=== PATIENT | male | born 1960 | race Caucasian/White ===

== ENCOUNTER → 2016-10-16 | Outpatient (CLI) | payer MEDICARE ==
[~2016-10-16] MED LIST: ACID CONTROL150 M1 PO; ASPIRIN81 M2 PO; CLOPIDOGREL BIS75 MG PO; CLOPIDOGREL75 MG PO; FLEXERIL10 MG PO; GABAPENTIN400 MG PO; GLIPIZIDE10 MG PO; GLUCOTROL10 MG PO; IMDUR PO; ISOSORBIDE MONO60 M1 PO; LEVEMIR FL100 UNIT/1 SUBQ; LEVEMIR100 UNITS/ SUBQ; LISINOPRIL PO; LISINOPRIL10 MG PO; LORTAB 5-325 M1 EACH PO; LOW DOSE ASPIRI81 M2 PO; METFORMIN HCL1000 M1 PO; METFORMIN PO; METOPROLOL SUC100 MG PO; PRINIVIL10 MG PO; ROSUVASTATIN CA20 MG PO; TOPROL XL100 MG PO; TRAMADOL HCL100 MG PO; ZANTAC150 M1 PO
--- NOTE | ~2016-10-16 | EKG ---
PATIENT: KARLOS ABBASI UNIT #: [id number] Ventricular Rate: 71 BPM Atrial Rate: 71 BPM P-R Interval: 172 ms QRS Duration: 106 ms Q-T Interval: 398 ms QTC Calculation(Bezet): 432 ms P [place]: -2 degrees Calculated R [place]: 38 degrees Calculated T [place]: 71 degrees Diagnosis Line: Normal sinus rhythm Diagnosis Line: Normal ECG Diagnosis Line: No previous ECGs available Diagnosis Line: Confirmed by LEONID QUEVEDO MD ([id number]) on Diagnosis Line: 10/17/2016 9:08:24 PM INTERPRETING MD: SHIRA
[2016-10-16 15:40] LABS: CALCIUM SERUM 9.2 mg/dL (8.4-10.2); GLOM FILT RATE Estimated 83.8 mL/min (>60); POTASSIUM 4.2 mmol/L (3.5-5.1)
== END | disposition home or self-care (01) ==
LOC: CAMB 13:48
PROVIDERS: Orthopaedic Surgery
DX: Z01.818 Encounter for other preprocedural examination (principal); S83.281A Other tear of lateral meniscus, current injury, right knee, initial encounter; M25.861 Other specified joint disorders, right knee
CPT/HCPCS: 36415; 80048; 93005

== ENCOUNTER → 2016-10-25 | Day surgery (SDC) | payer MEDICARE ==
--- NOTE | ~2016-10-25 | OR ---
Unit #: [id number] #: [id number] Patient: KARLOS ABBASI JR [id number] [address] [address] [id number] O MR#: [id number] NAME: KARLOS ABBASI ROOM: Date of Procedure: 10/25/2016 Admission Date: 10/25/2016 Surgeon: Froilan Moreno M.D. : 1960 Attending Physician: Froilan Moreno M.D. Primary Care Physician: Melissa Torres M.D. OPERATIVE REPORT PREOPERATIVE DIAGNOSES 1. Right knee lateral meniscus tear. 2. Right knee chondromalacia. 3. Right lateral tibial plateau stress/insufficiency fracture. POSTOPERATIVE DIAGNOSES 1. Right knee lateral meniscus tear. 2. Grade 3 chondromalacia, right tibial plateau. 3. Grade 2/3 chondromalacia, right lateral femoral condyle. 4. Grade 3 chondromalacia of trochlea. 5. Tibial insufficiency/stress fracture. PROCEDURES PERFORMED 1. Right knee subchondroplasty with internal fixation of tibial plateau insufficiency fracture. 2. Right knee arthroscopic partial lateral meniscectomy. 3. Right knee limited arthroscopic synovectomy. 4. Chondroplasty of right tibial plateau and right lateral femoral condyle. PROTECTION SPECIALIST Nilda Valadez. ANESTHESIA General with adductor canal block. ESTIMATED BLOOD LOSS Minimal. COMPLICATIONS None apparent. INDICATIONS FOR PROCEDURE Mr. Abbasi is a 56-year-old gentleman with known chondromalacia of the right knee and lateral meniscus tear. He has failed conservative treatment with corticosteroid injections as well as Synvisc injections. An MRI demonstrated an area of high-grade marrow edema and microfracture in the tibial plateau. This is a large lesion in the lateral tibial plateau. We discussed an arthroscopy with subchondroplasty. He elected to proceed. DESCRIPTION OF PROCEDURE Unit #: [id number] #: [id number] Patient: KARLOS ABBASI JR The patient was identified in the preoperative holding area. The operative site was marked. Preoperative antibiotics were administered. A regional adductor canal block was performed. The patient was brought to the operating room and placed supine on the operating table. A general anesthetic was induced. The right lower extremity was identified. Tourniquet was applied to the right thigh. The leg was placed in arthroscopic leg brown. The leg was prepped and draped in sterile fashion. The leg was exsanguinated. The tourniquet inflated. A standard anterolateral viewing portal was established. Diagnostic arthroscopy was performed. There was a large volume of numerous loose chondral fragments throughout the knee diffusely. Anteromedial working portal was established and a shaver introduced. The chondral fragments were removed with the arthroscopic shaver. In the medial compartment, the medial meniscus was unremarkable and debridement and partial meniscectomy were required. The articular cartilage here was largely unremarkable as well. Limited synovectomy was performed with some proliferative synovium in the anterolateral and anteromedial chambers. Ligamentum tissue was resected and the ACL inspected. The ACL appeared somewhat degenerative with some intrasubstance type tearing of some of the fibers, was otherwise attached to the insertion on the lateral condyle. The lateral meniscus demonstrated high-grade tearing around the posterior horn and midbody. There was grade 3 and areas of even grade 4 chondromalacia on the lateral tibial plateau. The shaver was advanced across the intercondylar notch with the knee in a figure-4 position. The shaver was used to perform a chondroplasty at both the plateau and the distal femur. This meniscus was resected back to stable border. The knee was brought into extension and the scope and shaver advanced up through the trochlear groove. There was a small area of grade 2 and grade 3 chondromalacia of the trochlea. This was directly in the central portion of the trochlea. Chondroplasty here was not warranted. The patella was unremarkable. The suprapatellar pouch was inspected. There was some proliferative synovium here, which was debrided as well. The scope was then withdrawn from the knee. Under C-arm imaging, a spinal needle was used to localize the desired drill site for the placement of the cannula for the subchondroplasty. Once this was identified, a small stab incision was made with 11 blade knife. The trocar drilled and inserted to the desired depth. This was again checked under C-arm imaging. The graft had previously been mixed. This was injected injecting approximately total of 3.5 to 3.6 mL. The drill was then placed back in the tibia while the material was allowed to cure. The scope was advanced back into the knee and we confirmed no intra-articular penetration. Excess fluid was then evacuated from the knee. Once the graft had completely cured, the trocar and drill bit were removed. Wounds were closed with Prolene sutures. The patient was placed into a well-padded soft sterile dressing. DISPOSITION Stable to the recovery room. Dictated by... Froilan Moreno M.D. Unit #: [id number] #: [id number] Patient: ELROY KARLOS DYKES/nina TD: 10/26/2016 06:12 JOB #: [id number] OPERATIVE REPORT Page 1 of 1 X Froilan Moreno MD X PROCEDURE OPERATIVE NOTE
--- NOTE | ~2016-10-25 | CR170 ---
[facility] A Service of [facility] & [facility] RADIOLOGY TEXT RESULTS PATIENT: KARLOS ABBASI JR LOCATION: [facility] : 60 UNIT #: [id number] AGE: [address]: Froilan Moreno MD SEX: M ORDER DR: [id number] [facility] [address] [place], [place] [address] [id number] O MR#: [id number] Acc #: [id number] NAME: KARLOS ABBASI : 1960 SEX: M STUDY DATE/TIME: 10/25/2016 12:44 UNIT: [facility] ROOM: STUDY DESCRIPTION: CR Knee 2 Views Rt Attending Physician: Froilan Moreno M.D. Ordering Physician: Froilan Moreno M.D. Primary Care Physician: Melissa Torres M.D. MEDICAL IMAGING REPORT This report is preliminary unless electronic signature is present EXAM C-arm fluoroscopy with 4 permanent images of the right knee, 10/25/2016. HISTORY Subchondroplasty right knee in OR localization. Chronic anterior knee pain. MRI of the right knee obtained 10/03/2016 demonstrated full-thickness chondral lesion posterior weightbearing aspect of the lateral femoral condyle with associated marrow edema. FINDINGS C-arm fluoroscopy was provided for use in the operating room. 4 spot film radiographs of the right knee were obtained in the anterior projection documenting localization of the lateral aspect of the tibial plateau. 0.29 minutes of fluoroscopy time was utilized. Dictated by... Froilan Celaya M.D. THIS IS AN ELECTRONICALLY VERIFIED REPORT Froilan Celaya M.D. at 10/26/2016 6:17 AM [place]/nasrin TD: 10/25/2016 16:14 JOB #: [id number] MEDICAL IMAGING REPORT Page 1 of 1 COPY
== END | disposition home or self-care (01) ==
LOC: CSUR 09:38
DX: M23.251 Derangement of posterior horn of lateral meniscus due to old tear or injury, right knee (principal); M84.361A Stress fracture, right tibia, initial encounter for fracture; M94.261 Chondromalacia, right knee; I25.10 Atherosclerotic heart disease of native coronary artery without angina pectoris; I10 Essential (primary) hypertension; E78.00 Pure hypercholesterolemia, unspecified; M17.11 Unilateral primary osteoarthritis, right knee; E11.9 Type 2 diabetes mellitus without complications; E78.5 Hyperlipidemia, unspecified; G47.30 Sleep apnea, unspecified; K21.9 Gastro-esophageal reflux disease without esophagitis; Z87.891 Personal history of nicotine dependence; Z79.82 Long term (current) use of aspirin; Z79.891 Long term (current) use of opiate analgesic; Z79.4 Long term (current) use of insulin; Z79.899 Other long term (current) drug therapy; Z95.1 Presence of aortocoronary bypass graft; Z95.5 Presence of coronary angioplasty implant and graft; I25.2 Old myocardial infarction
CPT/HCPCS: 73560; 76001; 82947; C1713; J0690; J1100; J1815; J1885; J2250; J2270; J2765; J2795; J3010

== ENCOUNTER → 2016-11-16 | Outpatient (CLI) | payer MEDICARE ==
--- NOTE | ~2016-11-16 | US85 ---
[facility] A Service of [facility] & [facility] RADIOLOGY TEXT RESULTS PATIENT: KARLOS ABBASI JR LOCATION: [facility] : 60 UNIT #: [id number] AGE: [address]: RADHA LACEY PA-C SEX: M ORDER DR: [id number] [facility] [address] [place], [place] [address] [id number] O MR#: [id number] Acc #: [id number] NAME: KARLOS ABBASI JR : 1960 SEX: M STUDY DATE/TIME: 11/16/2016 11:49 UNIT: [facility] ROOM: STUDY DESCRIPTION: LE Veins Unilat or Ltd Stdy Attending Physician: Radha Lacey Pa-C Referring Physician: Radha Lacey Pa-C Ordering Physician: Physician Non-Staff Primary Care Physician: Melissa Torres M.D. MEDICAL IMAGING REPORT This report is preliminary unless electronic signature is present EXAM Right lower extremity venous duplex, 11/16/2016. HISTORY Right lower extremity pain and swelling in right calf for 3 days. Right knee surgery 3 weeks ago. Evaluate for deep vein thrombosis. TECHNIQUE Dasilva-scale images of the right lower extremity were obtained as well as Doppler waveform spectral analysis and color flow Doppler imaging. FINDINGS There is normal blood flow and compressibility in the right common femoral vein, deep femoral vein, superficial femoral vein, and popliteal vein. Normal blood flow and compressibility is seen in the right calf veins. There is, however, a large complicated fluid collection in the proximal medial right calf which measures 9.2 cm x 2 cm x 4.8 cm. This could represent a hematoma or a complicated Smith cyst. Clinical correlation is recommended. IMPRESSION 1. No evidence of deep vein thrombosis in the right lower extremity. 2. 9.2 cm complicated fluid collection in the medial aspect of the upper right calf. This could represent postoperative hematoma or it could represent a complicated Smith cyst. Clinical correlation is recommended. Dictated by... Froilan Celaya M.D. THIS IS AN ELECTRONICALLY VERIFIED REPORT [facility] A Service of [facility] & [facility] RADIOLOGY TEXT RESULTS PATIENT: KARLOS ABBASI JR LOCATION: [facility] : 60 UNIT #: [id number] AGE: [address]: RADHA LACEY PA-C SEX: M ORDER DR: Froilan Celaya M.D. at 11/17/2016 7:20 AM [place]/nasrin TD: 11/16/2016 16:14 JOB #: [id number] MEDICAL IMAGING REPORT Page 1 of 1 COPY
== END | disposition home or self-care (01) ==
LOC: CNIV 11:04
DX: Z47.89 Encounter for other orthopedic aftercare (principal); M79.89 Other specified soft tissue disorders; R93.7 Abnormal findings on diagnostic imaging of other parts of musculoskeletal system
CPT/HCPCS: 93971

== ENCOUNTER 2016-11-24 01:43 | Inpatient (IN) | payer MEDICARE ==
[~2016-11-24] VITALS: Ht 182.9 cm; Wt 96.5 kg
--- NOTE | ~2016-11-24 | DS ---
Unit #: [id number] #: [id number] Patient: KARLOS ABBASI JR [id number] [address] [place], [place] [address] [id number] I MR#: [id number] NAME: KARLOS ABBASI JR ROOM: 468 Age: 56 Sex: M Admission Date: 11/24/2016 : 1960 Discharge Date: 11/25/2016 Attending Physician: Cody Hernandez M.D. Primary Care Physician: Melissa Torres M.D. DISCHARGE SUMMARY ADMITTING DIAGNOSIS Right calf swelling and pain. DISCHARGE DIAGNOSIS Hematoma of the right lower extremity. CONSULTATIONS 1. Vascular surgery, Dr. Lovell. 2. Orthopedic surgery. HISTORY This is a pleasant 56-year-old male who underwent right arthroscopic knee surgery on 10/25/2016. He noticed some postoperative swelling, which continued to get worse. He started having some pain. On ultrasound he was found to have right calf hematoma. He was seen by orthopedic surgery, as well as vascular surgery. He had no vascular compromise. His aspirin and Plavix were discontinued (1) compressions. The patient has been cleared by ortho to be discharged home to be followed as an outpatient. MEDICAL HISTORY 1. Type 2 diabetes mellitus. 2. Hypertension. 3. Hyperlipidemia. DISCHARGE MEDICATIONS 1. Gabapentin 400 mg t.i.d. 2. Metformin 1,000 b.i.d. 3. Metoprolol 100 mg daily. 4. Rosuvastatin 20 mg daily. 5. Lisinopril 10 mg daily. 6. Insulin 58 to 68 units daily. 7. Zantac 150 mg daily. 8. Aspirin 81 mg daily. 9. Hydrocodone with acetaminophen 5/325 mg 2 tablets q.6 as needed. 10. Glipizide 10 mg b.i.d. 11. Isosorbide mononitrate 60 mg daily. NOTE: Medications on hold are Plavix and aspirin. FOLLOWUP 1. Follow up with Dr. Moreno as an outpatient in a week. 2. Follow with primary care physician in 2 weeks. 3. The patient will need a venous ultrasound of right lower extremity as Unit #: [id number] #: [id number] Patient: KARLOS ABBASI JR R an outpatient. CONDITION AT DISCHARGE Stable. DISPOSITION To home. Dictated by... Fang Jose/ryan TD: 11/27/2016 09:03 JOB #: [id number] DISCHARGE SUMMARY Page 1 of 1 X Silvana Morton MD X DISCHARGE SUMMARY
--- NOTE | ~2016-11-24 | CR173 ---
[facility] A Service of [facility] & [facility] RADIOLOGY TEXT RESULTS PATIENT: KARLOS ABBASI JR LOCATION: [place] [address] : 60 UNIT #: [id number] AGE: [address]: PRATIK FERNANDEZ V SEX: M ORDER DR: [id number] [place] [id number] [facility]. [place], [place] [address] [id number] I MR#: [id number] Acc #: [id number] NAME: KARLOS ABBASI : 1960 SEX: M STUDY DATE/TIME: 11/24/2016 3:48 [facility] STUDY DESCRIPTION: CR Knee 3 Views Rt Attending Physician: Pratik Fernandez M.D. Ordering Physician: Filemon Luis Aprn Primary Care Physician: Melissa Torres M.D. MEDICAL IMAGING REPORT This report is preliminary unless electronic signature is present EXAM Right knee series INDICATION Right knee swelling for the past 3 weeks. PROCEDURE Three views of the right knee. COMPARISON None. FINDINGS No acute fracture or dislocation. IMPRESSION No acute findings. Dictated by... Johan Guevara M.D. THIS IS AN ELECTRONICALLY VERIFIED REPORT Johan Guevara M.D. at 11/28/2016 8:31 AM LOLITA/barak TD: 11/24/2016 08:18 JOB #: [id number] MEDICAL IMAGING REPORT Page 1 of 1 COPY
--- NOTE | ~2016-11-24 | CT20 ---
[facility] A Service of [facility] & [facility] RADIOLOGY TEXT RESULTS PATIENT: KARLOS ABBASI JR LOCATION: [place] [address] : 60 UNIT #: [id number] AGE: [address]: PRATIK FERNANDEZ V SEX: M ORDER DR: [id number] [facility] [address]. [place], [place] [address] [id number] I MR#: [id number] Acc #: [id number] NAME: KARLOS ABBASI JR : 1960 SEX: M STUDY DATE/TIME: 11/24/2016 10:06 UNIT: [facility] ROOM: [id number] STUDY DESCRIPTION: CT Angio Lower Ext Eyad Attending Physician: Pratik Fernandez M.D. Ordering Physician: Terrell Allen M.D. Primary Care Physician: Melissa Torres M.D. MEDICAL IMAGING REPORT This report is preliminary unless electronic signature is present EXAM CTA of the bilateral lower extremities FINDINGS Result text under the CT abdomen and pelvis examination. Please see that examination for full report. Dictated by... Jimbo Yung M.D. THIS IS AN ELECTRONICALLY VERIFIED REPORT Jimbo Yung M.D. at 11/25/2016 8:37 AM PERLA/tresa TD: 11/24/2016 15:31 JOB #: [id number] MEDICAL IMAGING REPORT Page 1 of 1 COPY
--- NOTE | ~2016-11-24 | CT14 ---
[facility] A Service of [facility] & [facility] RADIOLOGY TEXT RESULTS PATIENT: KARLOS ABBASI JR LOCATION: [place] [address] : 60 UNIT #: [id number] AGE: [address]: PRATIK FERNANDEZ V SEX: M ORDER DR: [id number] [facility]. [facility] [address] [place], [place] [address] [id number] I MR#: [id number] Acc #: [id number] NAME: KARLOS ABBASI : 1960 SEX: M STUDY DATE/TIME: 11/24/2016 10:06 [facility] [id number] STUDY DESCRIPTION: CT Angio Abdomen and Pelvis Attending Physician: Pratik Fernandez M.D. Ordering Physician: Terrell Allen M.D. Primary Care Physician: Melissa Torres M.D. MEDICAL IMAGING REPORT This report is preliminary unless electronic signature is present EXAM CT of the abdomen and pelvis and lower extremities with angiographic reconstructions INDICATION Knee arthroscopy 4 weeks ago with swelling that started 2-3 weeks ago in right knee and today cannot walk. Most of the swelling is below the calf. TECHNIQUE The patient given 125 mL of Isovue-370. Spiral imaging was performed from the lower abdomen to the feet. The technologist noted that he cannot get the abdomen on due to the patient's height. Patient cannot straighten his right leg. 3D reconstructions of the arterial structures were generated. This CT exam was performed with one or more of the following radiation dose reduction techniques: Automatic exposure control, adjustment of mA and/or kV according to patient size, and iterative reconstruction. FINDINGS The lower portions the liver and spleen are normal. The visualized portion of the gallbladder is normal. The visualized portion of the pancreas is normal. The visualized portion of the adrenal glands and kidneys are normal. The right adrenal gland is actually not visible on this study. The bowel is normal. The bladder and prostate gland are normal. There is a small right joint effusion in the knee. There is a complex fluid collection/hematoma in the right calf medially. It is about 12.4 x 6.5 cm on the axial images and is about 12 cm from top to bottom on the sagittal series. It is consistent with an intramuscular hematoma. VASCULAR STUDY FINDINGS: The lower abdominal aorta is normal in size. Renal arteries are patent. The MYRNA is patent. There is minimal plaque formation in the right common iliac artery without significant stenosis. Both external iliac arteries are patent and normal. The right superficial femoral has multiple calcified plaques and perhaps a moderate stenoses but STS. [facility] A Service of [facility] & [facility] RADIOLOGY TEXT RESULTS PATIENT: KARLOS ABBASI JR LOCATION: [facility] [id number] : [birth year] UNIT #: [id number] AGE: [address]: PRATIK FERNANDEZ V SEX: M ORDER DR: it is patent and the popliteal artery is patent. The trifurcation vessels are patent and they extend down to the ankle. The same is true on the left side with calcified plaques in the SFA. The popliteal artery is patent and the trifurcation vessels are patent with a proximal occlusion of the anterior tibial artery. IMPRESSION 1. The patient appears to have an intramuscular hematoma in the right calf. This is in the medial aspect of the calf and it is about 12.4 x 6.5 x 12.0 cm. There is also a small right joint effusion in the knee. 2. The patient's size precluded inclusion of the entire abdomen. The aorta is normal in size in the distal half of the abdomen and although there are multiple calcified plaques in the SMA, the vessels appear patent without significant stenosis down to the calf region. On the right side, there is three-vessel runoff to the ankle and on the left side the anterior tibial artery is occluded proximally though the 2 vessels extend down to the ankle. Dictated by... Jimbo Yung M.D. THIS IS AN ELECTRONICALLY VERIFIED REPORT Jimbo Yung M.D. at 11/25/2016 8:36 AM PERLA/tresa TD: 11/24/2016 15:11 JOB #: [id number] MEDICAL IMAGING REPORT Page 1 of 1 COPY
--- NOTE | ~2016-11-24 | CO ---
Unit #: [id number] #: [id number] Patient: KARLOS ABBASI JR [id number] [address] [place], [place] [address] [id number] I MR#: [id number] NAME: KARLOS ABBASI JR ROOM: 468 Age: 56 Sex: M Admission Date: 11/24/2016 : 1960 Attending Physician: Cody Hernandez M.D. Primary Care Physician: Melissa Torres M.D. Consultation Date: 11/24/2016 CONSULTATION REPORT CHIEF COMPLAINT Right calf swelling. HISTORY OF PRESENT ILLNESS Mr. Abbasi is a 56-year-old gentleman, who is well known to me from a previous right knee arthroscopy and subchondroplasty. He has had intermittent swelling of the right calf and lower extremity since surgery. He has undergone a previous ultrasound for DVT, which was negative, but did demonstrate a large fluid collection in the medial aspect of the right calf. This was treated with continued observation as this was felt to potentially be a Smith cyst. He now has re-presented to the emergency department with progressive swelling and pain, and an ultrasound has demonstrated occlusion of the popliteal vein. Orthopedic consultation has been requested for further evaluation. The patient states that he has no pain with range of motion of the toes or ankle. He has no numbness or tingling in the foot. He has normal sensation. He has pain with tendency to fully extend his knee secondary to discomfort in his calf. He states that he was actually doing somewhat better over the past several days, but then developed a large increase in the swelling today. PAST MEDICAL HISTORY Diabetes mellitus, hypertension, hyperlipidemia, coronary artery disease. PAST SURGICAL HISTORY Coronary artery bypass grafting and subsequent percutaneous angiography and stenting. Right knee arthroscopy with subchondroplasty. HOME MEDICATIONS Metformin, Imdur, Crestor, metoprolol, lisinopril, Zantac, Plavix, aspirin, Neurontin, Levemir, Elavil, glipizide, and [place]. ALLERGIES No known drug allergies. FAMILY HISTORY Noncontributory to the current illness. SOCIAL HISTORY The patient lives with his . He has no alcohol or tobacco use. REVIEW OF SYSTEMS Ten systems are reviewed and negative except with regard to the HPI. Unit #: [id number] #: [id number] Patient: KARLOS ABBASI JR PHYSICAL EXAMINATION GENERAL APPEARANCE: Jda-qfodgqvuitg-bxfluicei gentleman, who is in no acute distress, but obvious discomfort due to pain in the right lower extremity with attempted movement in bed. PSYCHIATRIC: Awake, alert, and oriented to person, place, time, and situation with normal range of mood and affect. CARDIAC: Regular rate and rhythm. PULMONARY: No increased work of breathing. Symmetric chest rise. ABDOMEN: Nontender. NEUROLOGIC: Intact motor and sensory function in the right foot. There are no paresthesias on sensory nerve inspection. No motor deficits are noted. SKIN: There is no overlying cyanosis or rubor or other skin color changes. MUSCULOSKELETAL: His right gastrocnemius is markedly swollen and the calf is firm, but there is no evidence of compartment syndrome. He has no pain with passive range of motion. Sensation is intact without paresthesias. VASCULAR: His foot is warm and well perfused with a palpable dorsalis pedis pulse. DIAGNOSTIC STUDIES IMAGING STUDIES: Plain film radiographs of the right knee and tibia are unremarkable. Normal knee radiographs. Ultrasound reveals a large fluid collection in the medial gastrocnemius with no flow through the popliteal vein. IMPRESSION This is a 56-year-old gentleman with a large right gastrocnemius hematoma and likely secondary occlusion of his popliteal vein versus deep venous thrombosis. I have discussed the case with Vascular Surgery. We will discontinue his heparin for now as the primary pathology appears to be hematoma rather than a DVT. We will hold his aspirin and Plavix as well. We will order a CT angio of the right lower extremity with runoff to ensure that there was no vascular injury. He will be n.p.o. pending further disposition. Dictated by... Fang Jonas/nina TD: 11/25/2016 05:39 JOB #: [id number] CONSULTATION REPORT Page 1 of 1 X Froilan Moreno MD CONSULTATION REPORT
--- NOTE | ~2016-11-24 | US85 ---
[facility] A Service of [facility] RADIOLOGY TEXT RESULTS PATIENT: KARLOS ABBASI JR LOCATION: [facility] [address] : 60 UNIT #: [id number] AGE: [address]: PRATIK FERNANDEZ V SEX: M ORDER DR: [id number] [facility] [address] [facility] [place], [place] [address] [id number] MR#: [id number] Acc #: [id number] NAME: KARLOS ABBASI : 1960 SEX: M STUDY DATE/TIME: 11/24/2016 4:35 [facility] RO[facility] [id number] STUDY DESCRIPTION: LE Veins [employer] Stdy Attending Physician: Pratik Fernandez M.D. Ordering Physician: Filemon Luis Aprn Primary Care Physician: Melissa Torres M.D. MEDICAL IMAGING REPORT This report is preliminary unless electronic signature is present EXAM Right lower extremity venous Doppler INDICATION Right leg pain and edema for the past week. PROCEDURE Dasilva-scale, color Doppler and spectral imaging deep veins right leg. COMPARISON 11/16/2016 FINDINGS There is DVT in the mid superficial femoral vein, distal superficial femoral vein, popliteal vein and posterior tibial vein. Complex collection in the right calf measuring up to 13.6 cm. It was previously measured at 9.2 cm. IMPRESSION 1. DVT in the kpe-ds-nupffd femoral vein, popliteal and posterior tibial veins. 2. Apparent increase in size of a complex collection in the right calf soft tissues which is nonspecific but could represent a hematoma. Correlate with physical examination findings and any relevant history. Dictated by... Johan Guevara M.D. THIS IS AN ELECTRONICALLY VERIFIED REPORT Johan Guevara M.D. at 11/28/2016 8:32 AM Jamie TD: 11/24/2016 08:18 [facility] A Service [facility] RADIOLOGY TEXT RESULTS PATIENT: KARLOS ABBASI JR LOCATION: [facility] [id number] : [birth year] UNIT #: [id number] AGE: [address]: PRATIK FERNANDEZ V SEX: M ORDER DR: JOB #: [id number] MEDICAL IMAGING REPORT Page 1 of 1 COPY
--- NOTE | ~2016-11-24 | CR253 ---
[facility] A Service of [facility] RADIOLOGY TEXT RESULTS PATIENT: KARLOS ABBASI JR LOCATION: [place] [address] : 60 UNIT #: [id number] AGE: [address]: PRATIK FERNANDEZ V SEX: M ORDER DR: [id number] [facility] [address] [facility] [place], [place] [address] [id number] MR#: [id number] Acc #: [id number] NAME: KARLOS ABBASI : 1960 SEX: M STUDY DATE/TIME: 11/24/2016 3:48 UNIT: [facility] ROOM: [id number] STUDY DESCRIPTION: CR Tibia and Fibula 2 Views Rt Attending Physician: Pratik Fernandez M.D. Ordering Physician: Filemon Luis Aprn Primary Care Physician: Melissa Torres M.D. MEDICAL IMAGING REPORT This report is preliminary unless electronic signature is present EXAM Right tib-fib series INDICATION Right lower leg swelling for the past 3 weeks. PROCEDURE Three views of the right tibia-fibula. COMPARISON None. FINDINGS No acute fracture or dislocation. Postsurgical change in the medial right lower leg soft tissues. IMPRESSION No acute findings. Dictated by... Johan Guevara M.D. THIS IS AN ELECTRONICALLY VERIFIED REPORT Johan Guevara M.D. at 11/28/2016 8:31 AM LOLITA/barak TD: 11/24/2016 08:17 JOB #: [id number] MEDICAL IMAGING REPORT Page 1 of 1 COPY
--- NOTE | ~2016-11-24 | HP ---
Unit #: [id number] #: [id number] Patient: KARLOS ABBASI JR [id number] [address] [place], [place] [address] [id number] MR#: [id number] NAME: KARLOS ABBASI JR ROOM: Age: 56 Sex: M Admission Date: 11/24/2016 : 1960 Attending Physician: Filemon Luis Aprn Primary Care Physician: Melissa Torres M.D. HISTORY AND PHYSICAL REVISED REPORT CHIEF COMPLAINT Right leg DVT with significant swelling of the right calf. HISTORY This pleasant 56-year-old male with AODM, hypertension, CAD, is admitted for right leg DVT. The patient underwent right arthroscopic knee surgery 10/25/2016. Did experience postop swelling. An ultrasound was performed of the right lower extremity 11/16/2016, which was negative for a DVT. There was a 9.2 cm complicated fluid collection in the medial aspect of the right upper calf, which could represent postop hematoma or complicated Smith cyst. However, yesterday, the patient developed increased swelling of the right calf and pain. He denies shortness of breath or chest pain. He presented to this emergency department early this morning where an ultrasound performed shows right femoral, popliteal and posterior tibial DVT with increased fluid collection of the right calf tissues. The patient has a significant amount of swelling. He does, however, have a pedal pulse. CPK is normal. In the ER he was given Lortab and morphine, was asked to admit the patient, and orthopedic surgery was called and will be seeing the patient this morning. PAST MEDICAL HISTORY 1. 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 2. Essential hypertension. 3. Hyperlipidemia. 4. CAD, status post CABG and then PCI and stent 2011. 5. Right knee arthroscopic surgery. ALLERGIES No known drug allergies. HOME MEDICATIONS Metformin 500 mg 2 tablets b.i.d.; Imdur 60 mg daily; Crestor 20 mg daily; metoprolol 100 mg daily; lisinopril 10 mg daily; zantac 150 mg daily; Plavix 75 mg daily; aspirin 81 mg daily; Neurontin 400 mg t.i.d.; Levemir; Elavil 50 mg daily; glipizide 10 mg b.i.d.; [place] 5/325 two tablets q.6 hours as needed. FAMILY HISTORY Negative for blood clots. Unit #: [id number] #: [id number] Patient: KARLOS ABBASI JR SOCIAL HISTORY The patient lives with his . He stopped smoking ten years ago. Does not drink alcohol. REVIEW OF SYSTEMS Notable for increasing pain and swelling of the right leg. Right arthroscopic knee surgery, diabetes, hypertension, hyperlipidemia, CAD, above mentioned surgeries, neuropathy. All other systems were reviewed and are otherwise negative. PHYSICAL EXAMINATION GENERAL: Pleasant 56-year-old male who looks to be uncomfortable secondary to right leg pain. VITAL SIGNS: Temperature 98.6, pulse 89, respirations 16, blood pressure 145/89, O2 saturation is 99% on room air. HEENT: Eyes - PERRLA. Extraocular muscles are intact. Pharynx is benign. NECK: Supple without adenopathy or thyromegaly. CHEST: Clear. CARDIAC: Normal S1 and S2 without S3, S4 or murmur. ABDOMEN: Bowel sounds are present. No hepatosplenomegaly, tenderness, or masses. EXTREMITIES: Notable for significant swelling of the right calf. Positive Nat sign. Patient keeps his right knee somewhat flexed due to significant calf pain. He does have a palpable pedal pulse and the foot is warm. NEUROLOGIC: Patient is awake, alert, and oriented. Cranial nerves are intact. Equal strength throughout. DIAGNOSTIC STUDIES LABS: Hematocrit 37.6, white blood count 11.3, normal platelet count. Normal coags. CPK is normal. Chemistries are pending. IMAGING STUDIES: Dopplers show right femoral popliteal and posterior tibial DVT. Increased fluid collection right calf tissues. Plain x-rays of the right knee and tib-fib are negative. ASSESSMENT 1. Right leg DVT. Patient is status post arthroscopic knee surgery about a month ago. 2. Very swollen right calf due to DVT but also patient does have increasing fluid collection right calf, which could be a Smith cyst versus postop hematoma. 3. AODM. 4. Essential hypertension. 5. CAD, status post CABG. Patient underwent a PCI and stent 2011. He takes both aspirin and Plavix. 6. Hyperlipidemia. PLANS 1. Heparin drip. 2. Orthopedic surgeon was called and will see the patient this morning. 3. Keep NPO except for meds until seen by ortho. I will hold Plavix for now. 4. Adjust medications i.e. insulin if NPO. 5. Await chemistries. Unit #: [id number] #: [id number] Patient: KARLOS ABBASI JR Dictated by Dinah Brennan M.D. AML/ts TD: 11/24/2016 06:07 JOB #: [id number] HISTORY AND PHYSICAL Page 1 of 1 X Dinah Brennan MD X HISTORY AND PHYSICAL
--- NOTE | ~2016-11-24 | CO ---
Unit #: [id number] #: [id number] Patient: KARLOS ABBASI JR [id number] [address] [place], [place] [address] [id number] MR#: [id number] NAME: KARLOS ABBASI JR ROOM: [facility] Age: 56 Sex: M Admission Date: 11/24/2016 : 1960 Attending Physician: Cody Hernandez M.D. Primary Care Physician: Melissa Torres M.D. Consultation Date: 11/24/2016 CONSULTATION REPORT REASON FOR CONSULTATION Right leg DVT with swelling. HISTORY OF PRESENT ILLNESS This is a 56-year-old male, who had right knee surgery by Dr. Moreno on 10/25/2016. He reports having some postoperative swelling, but it improved every night with leg elevation. He reports that he was working with physical therapy yesterday at which time, his right calf swelled up to the point that he could no longer walk. It was exquisitely painful. He finally presented to [facility] for evaluation after it failed to resolve. He is on Plavix. He does not smoke. He underwent a right leg ultrasound while at [facility], which demonstrated a DVT in his right femoral, popliteal, and posterior tibial vein with an increase in size of a right calf soft tissue fluid collection. PAST MEDICAL HISTORY 1. Hypertension. 2. Hyperlipidemia. 3. Coronary artery disease with previous right leg vein harvest from coronary artery bypass grafting surgery. 4. Right knee arthroscopic surgery. ALLERGIES No known drug allergies. MEDICATIONS LIST Includes Glucophage 1000 mg p.o. b.i.d., isosorbide mononitrate 60 mg p.o. daily, Crestor 20 mg p.o. daily, lisinopril 10 mg p.o. daily, Zantac 150 mg p.o. daily, Plavix 75 mg p.o. daily, aspirin 81 mg daily, gabapentin 400 mg p.o. t.i.d., Levemir 58 to 68 units subcu daily, glipizide 10 mg p.o. b.i.d., Lortab 5/325 two tablets p.o. every 6 hours p.r.n. pain, metoprolol succinate 100 mg p.o. daily. SOCIAL HISTORY The patient lives at home with his spouse. He denies smoking, alcohol, or illegal drug use. FAMILY HISTORY Mother and father both . Mother with a history of cancer as well as diabetes and hypertension. No medical history listed for dad. REVIEW OF SYSTEMS A 12-point review of systems was completed and otherwise negative unless Unit #: [id number] #: [id number] Patient: KARLOS ABBASI JR other than listed in history of present illness. PHYSICAL EXAMINATION VITAL SIGNS: Temperature 98.6, heart rate 98, blood pressure 145/89, O2 saturation 95%. GENERAL APPEARANCE: This is a well-developed, well-nourished male, in no acute distress. Good mood and appropriate affect. Answers questions appropriately. He is being seen in the presence of his spouse. HEENT: Normocephalic. Pupils equal, round, and reactive to light. NECK: Supple. No carotid bruits noted. CARDIAC: Regular rate and rhythm. No murmurs noted. LUNGS: Clear to auscultation. Nonlabored, on room air. ABDOMEN: Positive bowel sounds. Abdomen is soft, nontender. No distention. MUSCULOSKELETAL: Moves all extremities except the right lower extremity, which is limited due to the weight of his leg related to the swelling. Upper extremities, no deformities noted. No edema. Lower extremities, gross edema of his right calf. Skin of the right calf is tight, however, it is able to be slightly compressed. VASCULAR: Palpable radial pulses bilaterally. Palpable femoral pulses bilaterally. Right dorsalis pedis and posterior tibialis pulses are not palpable, however, there are signals present. INTEGUMENTARY: Skin is warm and dry. The skin on his right second, third, and fourth toes have ecchymosis in various stages. The patient reports that this ecchymosis has been present for about a week now. There is some resolving ecchymosis of his right calf. Again, the right calf muscle is swollen and the skin is taut, but compressible. NEUROLOGIC: Cranial nerves II through XII grossly intact. Sensation of bilateral feet remained intact. The patient reports he can feel me touching each of his toes on each foot equally. No loss of sensation at this time. He has full motor control of his bilateral feet including the right toes. He is able to move the toes as well as plantar and dorsiflex the right foot. PSYCHIATRIC: Oriented to person, place, and time. DIAGNOSTIC STUDIES IMAGING STUDIES: The patient underwent right venous duplex, which demonstrated a DVT in the femoral, popliteal, and posterior tibial vein. CTA with bilateral runoff has been completed and results pending. LABORATORY RESULTS: Sodium 132, potassium 4.4, chloride 100, CO2 of 25, BUN 17, creatinine 0.9, glucose 288. Hemoglobin 12.5, hematocrit 37.6, WBCs 11.3, platelets 334. INR 1. ASSESSMENT 1. Right leg deep vein thrombosis. 2. Extensive edema of the right leg. PLAN Dr. Lovell reviewed CTA with bilateral runoff and did comment. Concern remains for possible need for fasciotomy if swelling continues to worsen. We will have the nurses do frequent vascular check to monitor the foot. Once CTA is reviewed, we will comment on whether the patient is appropriate for heparin therapy. Dictated by... Sy Solorzano APRN for Benny Lovell M.D. Unit #: [id number] #: [id number] Patient: ELROY DYKES,KARLOS BROWER/nina TD: 11/25/2016 07:36 JOB #: [id number] CONSULTATION REPORT Page 1 of 1 X X CONSULTATION REPORT
--- NOTE | ~2016-11-24 | EKG ---
PATIENT: KARLOS ABBASI UNIT #: [id number] Ventricular Rate: 91 BPM Atrial Rate: 91 BPM P-R Interval: 162 ms QRS Duration: 98 ms Q-T Interval: 366 ms QTC Calculation(Bezet): 450 ms P [place]: 65 degrees Calculated R [place]: 39 degrees Calculated T [place]: 71 degrees Diagnosis Line: Normal sinus rhythm Diagnosis Line: Low voltage QRS Diagnosis Line: Borderline ECG Diagnosis Line: When compared with ECG of 16-OCT-2016 14:09, Diagnosis Line: No significant change was found Diagnosis Line: Confirmed by AMIRA VARMA MD ([id number]) on Diagnosis Line: 11/24/2016 3:05:32 PM INTERPRETING MD: AVANI WALLACE
[~2016-11-24 01:43] MED LIST changes: -ASPIRIN81 M2 PO; -CLOPIDOGREL75 MG PO; -GLUCOTROL10 MG PO; -IMDUR PO; -LEVEMIR FL100 UNIT/1 SUBQ; -LISINOPRIL PO; -LISINOPRIL10 MG PO; -LORTAB 5-325 M1 EACH PO; -METFORMIN PO; -TOPROL XL100 MG PO; -ZANTAC150 M1 PO
[2016-11-24 04:15] LABS: BASOPHIL# 0.1 X10e3 (0-0.3); BASOPHIL% 0.8 % (0-2.5); EOSINOPHIL# 0.2 X10e3 (0-0.7); EOSINOPHIL% 2.1 % (0.0-7.0); HEMATOCRIT 37.6 % (38.0-50.0); HEMOGLOBIN 12.5 gm/dL (13.0-16.0); LYMPHOCYTE# 1.6 X10e3 (1.0-3.5); MEAN CELL VOLUME 84.2 FL (83-96); MEAN CORPUSCULAR HGB CONC 33.3 g/dL (30-36); MEAN PLATELET VOLUME 7.4 FL (6.5-11.5); MONOCYTE# 1.1 X10e3 (0-1.0); MONOCYTE% 9.8 % (3.0-12.0); NEUTROPHIL# 8.3 X10e3 (1.5-7.1); NEUTROPHIL% 73.3 % (40-75); PLATELET COUNT 334 X10e3 (140-420); RED BLOOD COUNT 4.47 X10e (3.90-5.60); RED CELL DISTRIBUTION WIDTH 13.2 % (11.0-15.5); WHITE BLOOD COUNT 11.3 X10e3 (4.0-10.5)
[2016-11-24 04:18] LABS: DIFF IND NO
[2016-11-24 04:41] LABS: PARTIAL THROMBOPLASTIN TIME 27.1 SECONDS (23.5-31.3); PROTHROMBIN TIME (PATIENT) 10.4 SECONDS (10.0-11.7)
[2016-11-24 06:11] LABS: BUN/CREATININE RATIO 18.88; CALCIUM SERUM 8.6 mg/dL (8.4-10.2); CREATININE SERUM 0.9 mg/dL (0.6-1.4); GLOM FILT RATE Estimated 95.1 mL/min (>60); POTASSIUM 4.4 mmol/L (3.5-5.1)
[2016-11-24] MEDS ORDERED: LISINOPRIL10 MG PO (06:32)
[2016-11-24] MEDS ORDERED: METFORMIN PO (10:52)
[2016-11-24] MEDS ORDERED: ROSUVASTATIN CA20 MG PO (10:52)
[2016-11-24] MEDS ORDERED: IMDUR PO (10:52)
[2016-11-24] MEDS ORDERED: LISINOPRIL PO (10:54)
[2016-11-24] MEDS ORDERED: GABAPENTIN400 MG PO (10:55)
[2016-11-24] MEDS ORDERED: CLOPIDOGREL75 MG PO (10:55)
[2016-11-24] MEDS ORDERED: LEVEMIR FL100 UNIT/1 SUBQ (10:55)
[2016-11-24] MEDS ORDERED: ASPIRIN81 M2 PO (10:55)
[2016-11-24] MEDS ORDERED: ZANTAC150 M1 PO (10:55)
[2016-11-24] MEDS ORDERED: LORTAB 5-325 M1 EACH PO (10:56)
[2016-11-24] MEDS ORDERED: GLUCOTROL10 MG PO (10:56)
[2016-11-24] MEDS ORDERED: METOPROLOL SUC100 MG PO (10:57)
[2016-11-25] MEDS ORDERED: TOPROL XL100 MG PO (12:28)
== END 2016-11-25 15:25 | disposition home or self-care (01) | DRG 921 ==
LOC: CED 01:43 → CEDOF 05:50 → CED 06:08 → CEDOF 06:08 → C4C 15:35
PROVIDERS: Nurse Practitioner Family
DX: M96.840 Postprocedural hematoma of a musculoskeletal structure following a musculoskeletal system procedure (principal); I10 Essential (primary) hypertension; Y83.8 Other surgical procedures as the cause of abnormal reaction of the patient, or of later complication, without mention of misadventure at the time of the procedure; Y92.9 Unspecified place or not applicable; E11.9 Type 2 diabetes mellitus without complications; Z79.4 Long term (current) use of insulin; E78.5 Hyperlipidemia, unspecified; I25.10 Atherosclerotic heart disease of native coronary artery without angina pectoris; Z95.5 Presence of coronary angioplasty implant and graft; Z95.1 Presence of aortocoronary bypass graft; Z87.891 Personal history of nicotine dependence; Z82.49 Family history of ischemic heart disease and other diseases of the circulatory system; Z83.3 Family history of diabetes mellitus; Z80.9 Family history of malignant neoplasm, unspecified
CPT/HCPCS: 36415; 73562; 73590; 73706; 74174; 80048; 82550; 82947; 85025; 85610; 85730; 93005; 93971; 96374; 99285; J1644; J1815; J2270; Q9967

== ENCOUNTER → 2016-12-01 | Outpatient (CLI) | payer MEDICARE ==
[~2016-12-01] MED LIST changes: +ASPIRIN81 M2 PO; +CLOPIDOGREL75 MG PO; +GLUCOTROL10 MG PO; +IMDUR PO; +LEVEMIR FL100 UNIT/1 SUBQ; +LISINOPRIL PO; +LISINOPRIL10 MG PO; +LORTAB 5-325 M1 EACH PO; +METFORMIN PO; +TOPROL XL100 MG PO; +ZANTAC150 M1 PO
--- NOTE | ~2016-12-01 | US85 ---
[facility] A Service of [facility] RADIOLOGY TEXT RESULTS PATIENT: KARLOS ABBASI JR LOCATION: [facility] : 60 UNIT #: [id number] AGE: [address]: Froilan Moreno MD SEX: M ORDER DR: [id number] [facility] [address] [place], [place] [address] [id number] MR#: [id number] Acc #: [id number] NAME: KARLOS ABBASI : 1960 SEX: M STUDY DATE/TIME: 12/01/2016 9:04 UNIT: [facility] ROOM: STUDY DESCRIPTION: [facility] [employer] Stdy Attending Physician: Froilan Moreno M.D. Referring Physician: Froilan Moreno M.D. Ordering Physician: Froilan Moreno M.D. Primary Care Physician: Michael Cross M.D. MEDICAL IMAGING REPORT This report is preliminary unless electronic signature is present EXAM Right lower extremity venous duplex. HISTORY DVT. Right lower extremity swelling. Tenderness of the calf. FINDINGS Venous duplex imaging of the right lower extremity was performed. The right femoral, popliteal and peroneal veins are patent with normal venous filling in all visualized veins. No evidence of thrombosis is seen. There is an area with mixed echogenicity in the posterior mid-calf suggestive of a hematoma. IMPRESSION No evidence of DVT is seen in the right lower extremity on today's study. There is an area in the posterior mid-calf with mixed echogenicity suggestive of a hematoma. Clinical correlation is recommended. Dictated by... Balaji Corley M.D. THIS IS AN ELECTRONICALLY VERIFIED REPORT Balaji Corley M.D. at 12/05/2016 4:04 PM Anya TD: 12/01/2016 13:45 JOB #: [id number] MEDICAL IMAGING REPORT Page 1 of 1 COPY
== END | disposition home or self-care (01) ==
LOC: CNIV 08:43
DX: M79.604 Pain in right leg (principal); M79.89 Other specified soft tissue disorders
CPT/HCPCS: 93971